=== PATIENT | female | born 1965 | race Caucasian/White ===

== ENCOUNTER 2018-06-25 01:57 | Emergency (ER) | payer OTHER ==
[~2018-06-25] VITALS: Ht 157.5 cm; Wt 56.7 kg
--- NOTE | ~2018-06-25 | EKG ---
[place] [address] [facility] [place] [address] ELECTROCARDIOGRAM REPORT Name: ARIEL LEMA Room #: [facility] SPRINGSDonna#: [id number] Admission: 06/25/18 Attend Phys: Discharge: 06/25/18 Date of : 67 Report #: [id number] THIS REPORT FOR: //name// [facility] ED Test Date: 2018-06-25 Test Time: 02:21:33 Pat Name: ARIEL LEMA Department: Room: Gender: F Social Science Instructor: alonso bell : 1965 Requested By: Isidra Selby Order Number: [id number] MD: Shahzad Mckinley Measurements Intervals Tiline Rate: 72 P: 88 MT: 166 QRS: 65 QRSD: 88 T: 61 QT: 388 QTc: 425 Interpretive Statements Sinus rhythm Anterior infarct, old No previous ECG available for comparison Electronically Signed On 06-26-2018 15:26:37 CDT by Shahazd Mckinley [email or web address] <ELECTRONICALLY SIGNED> By: Shahzad Mckinley MD, [facility] 06/26/18 1526 0221 022 Shahzad Mckinley MD, FAC /EPI
[~2018-06-25 01:57] MED LIST: APAP W/CODEINE1 TA2 PO; CARAFATE 1 GM TA1 G1 PO; MACROBID 100 M100 M1 PO; NORCO 5-325 TA1 EACH PO; PHENERGAN 25 MG25 M1 PO; PRILOSEC 20 MG20 MG PO; RANITIDINE 150150 M1 PO; VENTOLIN HFA 1818 GM
[2018-06-25 02:06] VITALS: BP 166/85
[2018-06-25] MEDS ORDERED: PHENERGAN 25 MG25 M1 PO (02:21)
== END 2018-06-25 02:59 | disposition home or self-care (01) ==
LOC: ER 01:57
DX: T56.1X1A Toxic effect of mercury and its compounds, accidental (unintentional), initial encounter (principal); J44.9 Chronic obstructive pulmonary disease, unspecified; Y92.89 Other specified places as the place of occurrence of the external cause; R11.0 Nausea; F17.210 Nicotine dependence, cigarettes, uncomplicated; Z88.5 Allergy status to narcotic agent